=== PATIENT | female | born 1995 | race Two or more races ===

== ENCOUNTER 2018-10-23 13:58 | Emergency (ER) | payer SELFPAY ==
[~2018-10-23] VITALS: Ht 162.6 cm; Wt 86.0 kg
[2018-10-23 17:19] LABS: CLARITY URINE CLEAR (CLEAR); COLOR URINE YELLOW (YELLOW); KETONES URINE NEGATIVE (NEGATIVE); LEUKOCYTE ESTERASE URINE NEGATIVE (NEGATIVE); NITRITE URINE NEGATIVE (NEGATIVE); OCCULT BLOOD URINE NEGATIVE (NEGATIVE); PROTEIN URINE NEGATIVE (NEGATIVE); SPECIFIC GRAVITY URINE 1.026 (1.005-1.030); UROBILINOGEN URINE 0.2 E.U./dL (0.2-1.0)
[2018-10-24] MEDS ORDERED: ACETAMINOPHEN 325MG TABLET PO ONE (02:45)
[2018-10-24 03:42] LABS: BASOPHILS % 0.9 % (0.0-2.0); EOSINOPHILS % 3.9 % (0.0-5.0); HEMATOCRIT. 40.8 % (36.0-48.0); HEMOGLOBIN. 13.7 g/dL (12.0-16.0); LYMPHOCYTES % 37.5 % (20.0-50.0); MEAN CORPUSCULAR HEMOGLOBIN 27.8 pg (28.0-32.0); MEAN CORPUSCULAR VOLUME 82.5 fL (81.0-99.0); MEAN PLATELET VOLUME 7.1 fl (7.4-10.4); MONOCYTES % 7.9 % (2.0-8.0); NEUTROPHILS % 49.8 % (40.0-76.0); PLATELET 422 x1000/uL (130-400); RED BLOOD CELL COUNT 4.94 mill/uL (4.2-5.4); RED CELL DISTRIBUTION WIDTH 14.3 % (11.6-14.6)
[2018-10-24 05:43] VITALS: BP 109/71
== END 2018-10-24 05:47 | disposition home or self-care (01) ==
LOC: ER 13:58
DX: S30.1XXA Contusion of abdominal wall, initial encounter (principal); V49.49XA Driver injured in collision with other motor vehicles in traffic accident, initial encounter; Y93.89 Activity, other specified; Y92.89 Other specified places as the place of occurrence of the external cause; Y99.8 Other external cause status
CPT/HCPCS: 36415; 74176; 81025; 99284

== ENCOUNTER 2021-01-19 01:32 | Emergency (ER) | payer MEDICAID, OTHER ==
[~2021-01-19] VITALS: Ht 160 cm; Wt 82.0 kg
[2021-01-19] MEDS ORDERED: TRAMADOL 50MG TABLET PO ONE (02:00)
[2021-01-19] MEDS ORDERED: ACETAMINOPHEN 325MG TABLET PO ONE (02:00)
[2021-01-19] MEDS ORDERED: MORPHINE SULFATE 10 MG/ML CPJ IM ONE (02:45)
[2021-01-19] MEDS ORDERED: HYDR-4346 MT (05:53)
[2021-01-19 06:36] VITALS: BP 130/76
== END 2021-01-19 07:08 | disposition home or self-care (01) ==
LOC: ER 01:32
DX: S42.391A Other fracture of shaft of right humerus, initial encounter for closed fracture (principal); V49.59XA Passenger injured in collision with other motor vehicles in traffic accident, initial encounter; Y93.89 Activity, other specified; Y92.488 Other paved roadways as the place of occurrence of the external cause
CPT/HCPCS: 29105; 73060; 96372; 99283; J2270; A4565